=== PATIENT | female | born 1970 | race Native Hawaiian/Other Pacific Islander ===

== ENCOUNTER 2016-05-23 07:02 | Inpatient (IN) | payer OTHER ==
[2016-05-23 08:01] LABS: Basophils % (Auto) 0.6 % (0.0-1.8); Eosinophils % (Auto) 1.6 % (0.0-4.3); Hematocrit 41.9 % (30.3-42.9); Hemoglobin 13.8 gm/dl (10.1-14.3); Mean Corpuscular HGB Conc 33 % (30-34); Mean Corpuscular Hemoglobin 29 pg (28-32); Mean Corpuscular Volume 89 fl (79-97); Platelet Count 266 K/mm3 (140-440); Red Blood Count 4.71 M/mm3 (3.65-5.03); Red Cell Distribution Width 13.1 % (13.2-15.2); White Blood Count 6.2 K/mm3 (4.5-11.0)
[2016-05-23 08:10] LABS: Bilirubin,Urine NEG (Negative); Blood,Urine NEG (Negative); Ketones,Urine NEG (Negative); Leukocyte Esterase,Urine NEG (Negative); Mucus,Urine FEW /HPF; Nitrite,Urine NEG (Negative); Protein,Urine <15 mg/dL mg/dL (Negative); Urobilinogen,Urine < 2.0 mg/dL (<2.0); WBC,Urine < 1.0 /HPF (0.0-6.0)
[2016-05-23 08:25] LABS: Alanine Aminotransferase 42 units/L (7-56); Albumin 4.1 g/dL (3.9-5); Albumin/Globulin Ratio 1.1 %; Alkaline Phosphatase 114 units/L (35-129); Anion Gap 19 mmol/L; Bilirubin,Total 0.3 mg/dL (0.1-1.2); Blood Urea Nitrogen 12 mg/dL (7-17); Calcium 8.9 mg/dL (8.4-10.2); Carbon Dioxide 21 mmol/L (22-30); Chloride 101.2 mmol/L (98-107); Glucose 143 mg/dL (65-100); Lipase 45 units/L (13-60); Potassium 4.2 mmol/L (3.6-5.0); Sodium 137 mmol/L (137-145); Total Protein 7.8 g/dL (6.3-8.2)
--- NOTE | 2016-05-23 09:08 | Ultrasound Report ---
ULTRASOUND ABDOMEN LIMITED INDICATION: RUQ pain. COMPARISON: 04/15/2016 CT. FINDINGS: Right upper quadrant sonography demonstrates diffusely echogenic liver with grossly preserved contours. Right hepatic lobe approximately 20-21 cm in midclavicular length. No definite focal suspicious lesion or biliary dilatation. No gallstones or pericholecystic fluid. Hint of slight gallbladder sludge. Gallbladder wall thickness is 2.9 mm. Common bile duct is 4.5 mm. Imaged pancreas, nonaneurysmal abdominal aorta, IVC and the right kidney appear within normal limits. CONCLUSION: Fatty liver and slight gallbladder sludge without acute right upper quadrant sonographic abnormality, as described. Thank you for the opportunity to participate in this patient's care.
--- NOTE | 2016-05-23 09:17 | Emergency Department Report ---
HPI - General Chief Complaint: Chest Pain Time Seen by Provider: 05/23/16 08:40 - HPI HPI: Chief complaint: Right upper quadrant abdominal pain and left chest pain HPI: Patient is a 45-year-old female with a history of diabetes who states she's been having intermittent right upper quadrant pain radiating to the right flank with nausea off and on for the last month. Patient states that she usually worse when she lays flat sometimes is worse when she eats. Is also complains of left upper anterior chest pain radiating to her shoulder and down her left arm that she has intermittently. States it's worse when she's stressed and began this morning when she became stressed but continues. Patient had a negative stress thallium one year ago and has been worked up by nozzle tender with an echocardiogram in the last year. Patient also complains of tingling pain a stocking pattern for the last month or so. Mode of arrival: Private car Source: Patient old chart Began: See above Duration: See above Context: See above Quality: See above Severity: 8 out of 10 Improved with: Nothing Worsened with: See above Associated signs and symptoms: Patient denies shortness of breath or diaphoresis. ED Past Medical Hx - Past Medical History Previous Medical History?: Yes Hx Diabetes: Yes Additional medical history: fibromyalgia - Surgical History Past Surgical History?: Yes Additional Surgical History: x 2 - Social History Smoking Status: Never Smoker Substance Use Type: None - Medications Home Medications: Home Medications Medication Instructions Recorded Confirmed Last Taken Type Ibuprofen/Famotidine [Duexis 1 tab PO BID 03/26/13 05/23/16 05/24/15 History 800-26.6 mg Tablet] Dapagliflozin Propanediol [Farxiga] 5 mg PO QDAY 05/29/15 05/23/16 05/29/15 History Gabapentin [Gralise] 600 mg PO QDAY 05/29/15 05/23/16 05/24/15 History Sitagliptin Phos/Metformin HCl 1 tab PO QDAY 05/29/15 05/23/16 05/29/15 History [Janumet XR 100-1,000 mg] ED Review of Systems ROS: Stated complaint: ABD PAIN Other details as noted in HPI ROS Constitutional: No fever ENT: No uri symptoms Cardiovascular: chest pain Respiratory: No sob or cough GI: No vomiting or diarrhea : No dysuria frequency or urgency, Skin: No rash Neuro: No focal weakness or numbness Psych: No depression Gilberto/lymph: No edema Physical Exam - Physical Exam Vital Signs: Vital Signs 05/23/16 05/23/16 05/23/16 07:19 07:53 08:11 Temperature 97.9 F Pulse Rate 71 71 Respiratory 18 16 16 Rate Blood Pressure 124/60 Blood Pressure 124/60 [Left] O2 Sat by Pulse 97 99 99 Oximetry Physical Exam: GENERAL: The patient is well-developed well-nourished . HEENT: Normocephalic. Atraumatic. Extraocular motions are intact. Patient has moist mucous membranes. NECK: Supple. No meningitic signs are noted. There is no adenopathy noted. CHEST/LUNGS: Clear to auscultation. There is no respiratory distress noted. HEART/CARDIOVASCULAR: Regular. There is no tachycardia. There is no gallop rub or murmur. ABDOMEN: Abdomen is soft, mild right upper quadrant tenderness without rebound or guarding.. Patient has normal bowel sounds. There is no abdominal distention. SKIN: There is no rash. There is no edema. There is no diaphoresis. NEURO: The patient is awake, alert, and oriented. The patient is cooperative. The patient has no focal neurologic deficits. The patient has normal speech. MUSCULOSKELETAL: There is no tenderness or deformity. There is no limitation range of motion. There is no evidence of acute injury. ED Course Vital Signs 05/23/16 05/23/16 05/23/16 07:19 07:53 08:11 Temperature 97.9 F Pulse Rate 71 71 Respiratory 18 16 16 Rate Blood Pressure 124/60 Blood Pressure 124/60 [Left] O2 Sat by Pulse 97 99 99 Oximetry ED Medical Decision Making - Lab Data Result diagrams: 05/23/16 07:41 05/23/16 07:41 Laboratory Tests 05/23/16 05/23/16 07:41 07:41 Troponin T < 0.010 Lipase 45 HCG, Qual Negative Urinalysis within normal limits. - EKG Data -: EKG Interpreted by Me EKG shows normal: sinus rhythm Rate: normal (76) - EKG Data When compared to previous EKG there are: no significant change Interpretation: normal EKG - Radiology Data Radiology results: report reviewed (gallbladder ultrasound shows sludge and fatty liver but otherwise normal) interpreted by me: Chest x-ray shows no acute process. Critical care attestation.: If time is entered above; I have spent that time in minutes in the direct care of this critically ill patient, excluding procedure time. ED Disposition Clinical Impression: Chest pain Qualifiers: Chest pain type: unspecified Qualified Code(s): R07.9 - Chest pain, unspecified Disposition: OP ADMITTED IP TO THIS HOSP Is pt being admited?: Yes Does the pt Need Aspirin: Yes Condition: Fair Instructions: Chest Pain (ED) Referrals: PRIMARY CARE,MD [Primary Care Provider] - 3-5 Days Time of Disposition: 09:49 (admit to the hospitalist)
--- NOTE | 2016-05-23 10:20 | XRay Report ---
ROUTINE CHEST, TWO VIEWS: HISTORY: chest pain. The trachea, heart, mediastinal contour, lung ashley and bony thorax are unremarkable. IMPRESSION: Unremarkable chest x-ray.
--- NOTE | 2016-05-23 10:24 | Admit Criteria Form ---
Admission Criteria Documentation: CHEST PAIN Clinical Indications for Admission to Inpatient Care (Place 'X' for any and all applicable criteria): Admission is indicated for chest pain and ANY ONE of the following(1)(2)(3)(4)(5 ): [ ]I. Angina with acute coronary syndrome (Also use Myocardial Infarction or Angina guideline) [ ]II. Hemodynamic instability [X ]III. Angina needing acute intervention as indicated by ALL of the following (11)(12): [X ]a) Unstable angina is present as indicated by angina that is ANY ONE of the following: [ ]i) New onset [ ]ii) Nocturnal [X ]iii) Prolonged at rest [ ]iv) Progressive [X]b) Angina warrants acute intervention as indicated by ANY ONE of the following: [ ]i) Recurrent angina (e.g, not responding as previously to treatment) [ ]ii) Angina at rest or with low-level activities despite initial medical therapy [ ]iii) New or presumably new ST-segment depression on ECG [ ]iv) Signs or symptoms of heart failure (eg, dyspnea, pulmonary edema) [ ]v) New or worsening mitral regurgitation [ ]vi) Hemodynamic instability [ ]vii) Dangerous arrhythmia (eg, sustained ventricular tachycardia) [ ]viii) History of percutaneous coronary intervention within 6 months [ ]ix) History of coronary artery bypass graft surgery [ ]x) BILL risk score of 2 or greater[A] [X]xi) History of Diabetes(14) [ ]xii) High-risk cardiac ischemia findings on noninvasive testing (e.g, echocardiogram, treadmill testing, nuclear scan) [ ]xiii) Chronic renal insufficiency (ie, estimated GFR less than 60 mL/min/1.732m) [ ]xiv) Left ventricular ejection fraction less than 40% [ ]IV. Evidence of UT (eg, cardiac biomarkers positive, ST-segment elevation on ECG) also use Myocardial Infarction Criteria Form. [ ]V. Pulmonary edema [ ]. Respiratory distress [ ]VII. Chest pain indicative of serious diagnosis other than coronary artery disease (eg, aortic dissection) [ ]VIII. Contraindications and/or Inappropriate clinical situations for Observational Care in patients with Chest Pain, when ANY ONE of the following is required: [ ]a) Patient with risk factor for pulmonary embolism, acute coronary syndrome and myocardial infarction (18) [ ]b) Patient with Pulmonary embolism require an average LOS of 4.3 days, therefore emergency department observation management is inappropriate 18,23 [ ]c) Painful condition/s in the elderly, have the highest rate of recidivism after emergency department observation management (10.8%) 20,21,22 [ ]d) Elevated cardiac biomarker requires intensive and exhaustive care (19) [ ]IX. General contraindications and/or Inappropriate clinical situations for Observational Care in patients with Chest Pain, when ANY ONE of the following is required: [ ]a) Prediction of prolongation of LOS based on ANY ONE of the following may be considered as a contraindication for observational care 2, 3, 4, 5, 6, 7, 8, 9, 10, 11 [ ]i) Age > 65 yrs. [ ]ii) Patient arriving by ambulance [ ]iii) Patient with high acuity [ ]iv) Patient requiring vital sign monitoring [ ]v) Patient on IV medication [ ]b) Systolic blood pressures 180mmHg 3,12 [ ]c) Patient with altered mental status including delirium and other alteration of consciousness, (3) [ ]d) Patient whose discharge disposition will be to a shelter home or rehabilitation home should not be managed in Emergency Department Observation Unit. CMS rule requires 3 days hospital stay before such placement. 3,13 [ ]e) Patient with failure to thrive due to broad array of etiologies 3,16,17 [ ]f) Inability to ambulate 3,14 Extended stay beyond goal length of stay may be needed for (1)(28): [ ]a) Specific condition diagnosed after evaluation (eg, pulmonary embolism, aortic dissection) [ ]b) Unstable angina [ ]c) Continued suspicion of acute coronary syndrome with inability to complete needed cardiac evaluation (eg, patient clinically unable to undergo stress testing) [ ]d) Myocardial infarction (Contents from ANGINA and CHEST PAIN clinical indications for admission to inpatient care have been integrated in this form) The original [employer] content created by [employer] has been revised. The portions of the content which have been revised are identified through the use of italic text or in bold, and [email or web address] has neither reviewed nor approved the modified material. All other unmodified content is copyright [employer]. Please see references footnoted in the original [email or web address] edition 2016 Admission Criteria Met: Yes
[2016-05-23] MEDS ORDERED: ASPIRIN PO ONE (11:05)
[2016-05-23] MEDS ORDERED: LEXISCAN IV ONE ×2 (11:45→11:48)
--- NOTE | 2016-05-23 13:47 | Treadmill Report ---
THALLIUM STRESS TEST LEFT VENTRICLE: Left ventricular chamber size is within normal. Perfusion study demonstrates mild breast attenuation artifact, otherwise homogeneous uptake of the tracer in all segments. No significant defects identified. Gated analysis demonstrates normal left ventricular systolic function, ejection fraction 75%. CONCLUSION: Normal myocardial perfusion study. JOB# [id number] CA/NTS
[2016-05-23] MEDS ORDERED: ZOFRAN IV PRN (14:57)
[2016-05-23] MEDS: MORPHINE IV PRN ×2 (15:30→19:49)
[2016-05-23] MEDS ORDERED: TYLENOL PO PRN (17:13)
[2016-05-23] MEDS ORDERED: NON-FORMULARY (Gabapentin [Gralise] 600 MG) PO SCH (20:45)
[2016-05-23] MEDS ORDERED: DAPAGLIFLOZIN PROPANEDIOL 5 MG PO SCH (20:45)
[2016-05-23] MEDS ORDERED: NON-FORMULARY (Sitagliptin Phos/Metformin Hcl [Janumet Xr 100-1,000 Mg] 1 TAB) PO SCH (20:45)
--- NOTE | 2016-05-23 20:47 | History and Physical Report ---
History of Present Illness Date of examination: 05/23/16 Date of admission: 05/23/16 09:33 Chief complaint: CP and RUQ pain 1 day History of present illness: Patient is a 45-year-old female with a history of diabetes who states she's been having intermittent right upper quadrant pain radiating to the right flank with nausea off and on for the last month. Patient states that she usually worse when she lays flat sometimes is worse when she eats. Is also complains of left upper anterior chest pain radiating to her shoulder and down her left arm that she has intermittently. States it's worse when she's stressed and began this morning when she became stressed but continues. Patient had a negative stress thallium one year ago and has been worked up by blocker and polisher gold wheel with an echocardiogram in the last year. Patient also complains of tingling pain a stocking pattern for the last month or so. Mode of arrival: Private car Source: Patient old chart Began: See above Duration: See above Context: See above Quality: See above Severity: 8 out of 10 Improved with: Nothing Worsened with: See above Associated signs and symptoms: Patient denies shortness of breath or diapho Past History Past Medical History: diabetes, hyperlipidemia Past Surgical History: No surgical history Social history: lives with family Family history: hypertension Medications and Allergies Allergies Allergy/AdvReac Type Severity Reaction Status Date / Time codeine Allergy Nausea Unverified 04/14/16 13:52 ROACHES,CATS Allergy SLEEPY,WATERY Uncoded 04/14/16 13:53 EYES Home Medications Medication Instructions Recorded Confirmed Last Taken Type Ibuprofen/Famotidine [Duexis 1 tab PO BID 03/26/13 05/23/16 05/24/15 History 800-26.6 mg Tablet] Dapagliflozin Propanediol [Farxiga] 5 mg PO QDAY 05/29/15 05/23/16 05/29/15 History Gabapentin [Gralise] 600 mg PO QDAY 05/29/15 05/23/16 05/24/15 History Sitagliptin Phos/Metformin HCl 1 tab PO QDAY 05/29/15 05/23/16 05/29/15 History [Janumet XR 100-1,000 mg] Active Meds: Active Medications Acetaminophen (Tylenol) 650 mg PO Q4H PRN PRN Reason: Pain, Mild (1-3) Last Admin: 05/23/16 19:49 Dose: 650 mg Insulin Aspart (Novolog) 0 units SUB-Q ACHS REMIGIO PRN Reason: Protocol Miscellaneous Medication (Dapagliflozin Propanediol [Farxiga]) 5 mg PO QDAY REMIGIO Miscellaneous Medication (Gabapentin [Gralise]) 600 mg PO QDAY [facility] Miscellaneous Medication (Sitagliptin Phos/Metformin Hcl [Janumet Xr 100-1,000 Mg]) 1 tab PO QDAY REMIGIO Morphine Sulfate (Morphine) 2 mg IV Q4H PRN PRN Reason: Pain, Moderate (4-6) Last Admin: 05/23/16 19:49 Dose: 2 mg Ondansetron HCl (Zofran) 4 mg IV Q4H PRN PRN Reason: Nausea And Vomiting Review of Systems All systems: negative Cardiovascular: chest pain Gastrointestinal: abdominal pain Exam - Constitutional Vitals: Temp Pulse Resp BP Pulse Ox 98.0 F 84 18 110/55 99 05/23/16 17:35 05/23/16 17:35 05/23/16 17:35 05/23/16 17:35 05/23/16 09:54 General appearance: Present: no acute distress, well-nourished - EENT Eyes: Present: PERRL ENT: hearing intact, clear oral mucosa - Neck Neck: Present: supple, normal ROM - Respiratory Respiratory effort: normal Respiratory: bilateral: CTA - Cardiovascular Heart Sounds: Present: S1 & S2. Absent: rub, click - Extremities Extremities: pulses symmetrical, No edema Peripheral Pulses: within normal limits - Abdominal General gastrointestinal: Present: soft, non-tender, non-distended, normal bowel sounds Female genitourinary: Present: normal - Integumentary Integumentary: Present: clear, warm, dry - Musculoskeletal Musculoskeletal: gait normal, strength equal bilaterally - Psychiatric Psychiatric: appropriate mood/affect, intact judgment & insight - Neurologic Neurologic: CNII-XII intact, moves all extremities Results - Labs CBC & Chem 7: 05/23/16 07:41 05/23/16 07:41 Labs: Abnormal lab results 05/23/16 Range/Units 17:36 POC Glucose 167 H (70-105) Assessment and Plan - Patient Problems (1) Chest pain Status: Acute Qualifiers: Chest pain type: C Plan to address problem: Chest pain w/u-stress test and serial CE's (2) T2DM (type 2 diabetes mellitus) Status: Chronic Qualifiers: Diabetes mellitus complication status: without complication Diabetes mellitus complication detail: D Diabetic retinopathy severity: D Proliferative retinopathy type: P Diabetes mellitus macular edema: D Diabetes mellitus long term care phlebotomist insulin use: D Laterality: L Chronic kidney disease stage: C (3) Abdominal pain Status: Acute Qualifiers: Abdominal location: right upper quadrant Qualified Code(s): R10.11 - Right upper quadrant pain Plan to address problem: Surgical eval (4) DVT prophylaxis Status: Acute Plan to address problem: Lovenox 40 mg sq qd
[2016-05-23] MEDS ORDERED: NOVOLOG SUB-Q SCH (22:00)
[2016-05-24 00:24] VITALS: BP 130/62
--- NOTE | 2016-05-24 08:25 | Discharge Summary ---
Providers - Providers Date of Admission: 05/23/16 09:33 Date of discharge: 05/24/16 Attending physician: SARAY ELLISON Primary care physician: ANSON FABIAN MD Hospitalization Condition: Fair Hospital course: Patient was admitted for CP/Abd pain.Stress test was negative.Patient left AMA Disposition: LEFT AGAINST MEDICAL ADVICE Time spent for discharge: 15 minutes - Discharge Diagnoses (1) Chest pain Status: Resolved Qualifiers: Chest pain type: C Comment: secondary to GERD (2) T2DM (type 2 diabetes mellitus) Status: Chronic Qualifiers: Diabetes mellitus complication status: without complication Diabetes mellitus complication detail: D Diabetic retinopathy severity: D Proliferative retinopathy type: P Diabetes mellitus macular edema: D Diabetes mellitus senior care insulin use: D Laterality: L Chronic kidney disease stage: C (3) Abdominal pain Status: Acute Qualifiers: Abdominal location: right upper quadrant Qualified Code(s): R10.11 - Right upper quadrant pain Comment: Needs f/u with surgeon (4) DVT prophylaxis Status: Acute Core Measure Documentation - Palliative Care Palliative Care/ Comfort Measures: Not Applicable - Core Measures Any of the following diagnoses?: none Exam - Constitutional Vitals: Temp Pulse Resp BP Pulse Ox 98.2 F 84 18 130/62 97 05/24/16 00:24 05/24/16 00:24 05/24/16 00:24 05/24/16 00:24 05/24/16 00:24 Plan Follow up with: ANSON FABIAN MD [Primary Care Provider] - 3-5 Days Forms: AMA Form
[2016-05-24] MEDS ORDERED: TRADJENTA PO SCH (10:00)
[2016-05-24] MEDS ORDERED: GLUCOPHAGE XR PO SCH (10:00)
== END 2016-05-24 02:00 | disposition left against medical advice (07) | DRG 392 ==
LOC: ED 07:02 → 4A 09:33
PROVIDERS: ADMIT Internal Medicine; ATTEND Internal Medicine
DX: K21.9 Gastro-esophageal reflux disease without esophagitis (principal); E11.9 Type 2 diabetes mellitus without complications; M79.7 Fibromyalgia; E78.5 Hyperlipidemia, unspecified; R10.11 Right upper quadrant pain; Z88.5 Allergy status to narcotic agent; Z91.048 Other nonmedicinal substance allergy status; Z82.49 Family history of ischemic heart disease and other diseases of the circulatory system; Z53.21 Procedure and treatment not carried out due to patient leaving prior to being seen by health care provider
CPT/HCPCS: 36415; 71020; 76705; 78452; 80053; 81001; 82962; 83690; 84484; 84703; 85025; 93005; 93010; 93017; 96374; A9502; J2270; J2785

== ENCOUNTER 2016-12-20 00:47 | Emergency (ER) | payer OTHER | END 2016-12-20 01:15 | disposition left against medical advice (07) | LOC: ED 00:47 | DX: R07.9 Chest pain, unspecified (principal); Z53.21 Procedure and treatment not carried out due to patient leaving prior to being seen by health care provider | CPT/HCPCS: 93005; 93010 ==

== ENCOUNTER 2017-05-25 03:09 | Emergency (ER) | payer OTHER | END 2017-05-25 03:25 | disposition left against medical advice (07) | LOC: ED 03:09 | DX: R11.2 Nausea with vomiting, unspecified (principal); Z53.21 Procedure and treatment not carried out due to patient leaving prior to being seen by health care provider ==

== ENCOUNTER 2019-02-14 03:42 | Emergency (ER) | payer OTHER ==
[2019-02-14 03:55] VITALS: BP 156/73
--- NOTE | 2019-02-14 04:52 | Emergency Department Report ---
ED General Adult HPI - General Chief complaint: Wound/Laceration Stated complaint: PUNCTURE TO RIGHT HAND Time Seen by Provider: 02/14/19 04:15 Source: patient Mode of arrival: Ambulatory Limitations: No Limitations - History of Present Illness Initial comments: This is a 48-year-old female with no prior medical conditions who presents to ED after sustaining a puncture wound while cleaning out work but signed Natalia 2 AM. Patient states she had some Nitrol gloves on when she notices to the see some bleeding on her right palm. Patient states that she is unsure what the object that struck her was. Patient states after she looked into the trash she was cleaning she noted superiors of hearing, but said peak, some sharp object unknown metal. Patient states she does not recall a tetanus vaccination being up to date. At this moment moment she denies any symptoms. He is requested for STD panel - Related Data Home Medications Medication Instructions Recorded Confirmed Last Taken Ibuprofen/Famotidine [Duexis 1 tab PO BID 03/26/13 05/23/16 05/24/15 800-26.6 mg Tablet] Dapagliflozin Propanediol [Farxiga] 5 mg PO QDAY 05/29/15 05/23/16 05/29/15 Gabapentin [Gralise] 600 mg PO QDAY 05/29/15 05/23/16 05/24/15 Sitagliptin Phos/Metformin HCl 1 tab PO QDAY 05/29/15 05/23/16 05/29/15 [Janumet XR 100-1,000 mg] Previous Rx's Medication Instructions Recorded Last Taken Type Amoxicillin/K Clav Tab [Augmentin 1 tab PO Q12HR #20 tab 02/14/19 Unknown Rx 875 mg] Clindamycin [Clindamycin CAP] 300 mg PO Q6H #21 capsule 02/14/19 Unknown Rx Allergies Allergy/AdvReac Type Severity Reaction Status Date / Time codeine Allergy Nausea Unverified 04/14/16 13:52 ROACHES,CATS Allergy SLEEPY,WATERY Uncoded 04/14/16 13:53 EYES ED Review of Systems ROS: Stated complaint: PUNCTURE TO RIGHT HAND Other details as noted in HPI Comment: All other systems reviewed and negative ED Past Medical Hx - Past Medical History Previous Medical History?: Yes Hx Diabetes: Yes Additional medical history: fibromyalgia - Surgical History Past Surgical History?: Yes Additional Surgical History: x 2 - Social History Smoking Status: Never Smoker Substance Use Type: None - Medications Home Medications: Home Medications Medication Instructions Recorded Confirmed Last Taken Type Ibuprofen/Famotidine [Duexis 1 tab PO BID 03/26/13 05/23/16 05/24/15 History 800-26.6 mg Tablet] Dapagliflozin Propanediol [Farxiga] 5 mg PO QDAY 05/29/15 05/23/16 05/29/15 H istory Gabapentin [Gralise] 600 mg PO QDAY 05/29/15 05/23/16 05/24/15 History Sitagliptin Phos/Metformin HCl 1 tab PO QDAY 05/29/15 05/23/16 05/29/15 History [Janumet XR 100-1,000 mg] Amoxicillin/K Clav Tab [Augmentin 1 tab PO Q12HR #20 tab 02/14/19 Unknown Rx 875 mg] Clindamycin [Clindamycin CAP] 300 mg PO Q6H #21 capsule 02/14/19 Unknown Rx ED Physical Exam - General Limitations: No Limitations General appearance: alert, in no apparent distress - Head Head exam: Present: atraumatic, normocephalic - Eye Eye exam: Present: normal appearance - ENT ENT exam: Present: mucous membranes moist - Neck Neck exam: Present: normal inspection - Respiratory Respiratory exam: Present: normal lung sounds bilaterally. Absent: respiratory distress - Cardiovascular Cardiovascular Exam: Present: regular rate, normal rhythm. Absent: systolic murmur, diastolic murmur, rubs, gallop - GI/Abdominal GI/Abdominal exam: Present: soft, normal bowel sounds - Extremities Exam Extremities exam: Present: normal inspection - Back Exam Back exam: Present: normal inspection - Neurological Exam Neurological exam: Present: alert, oriented X3 - Psychiatric Psychiatric exam: Present: normal affect, normal mood - Skin Skin exam: Present: warm, dry, intact, normal color. Absent: rash ED Course Vital Signs 02/14/19 03:48 Temperature 98.2 F Pulse Rate 86 Respiratory 14 Rate Blood Pressure 156/73 O2 Sat by Pulse 95 Oximetry ED Medical Decision Making - Lab Data Result diagrams: 02/14/19 04:45 02/14/19 04:45 Laboratory Last Values WBC 6.4 K/mm3 (4.5-11.0) 02/14/19 04:45 RBC 4.44 M/mm3 (3.65-5.03) 02/14/19 04:45 Hgb 14.0 gm/dl (10.1-14.3) 02/14/19 04:45 Hct 41.0 % (30.3-42.9) 02/14/19 04:45 MCV 93 fl (79-97) 02/14/19 04:45 MCH 32 pg (28-32) 02/14/19 04:45 MCHC 34 % (30-34) 02/14/19 04:45 RDW 13.4 % (13.2-15.2) 02/14/19 04:45 Plt Count 289 K/mm3 (140-440) 02/14/19 04:45 Lymph % (Auto) 37.4 % (13.4-35.0) H 02/14/19 04:45 [place] % (Auto) 5.9 % (0.0-7.3) 02/14/19 04:45 Eos % (Auto) 2.0 % (0.0-4.3) 02/14/19 04:45 Baso % (Auto) 0.6 % (0.0-1.8) 02/14/19 04:45 Lymph # 2.4 K/mm3 (1.2-5.4) 02/14/19 04:45 [place] # 0.4 K/mm3 (0.0-0.8) 02/14/19 04:45 Eos # 0.1 K/mm3 (0.0-0.4) 02/14/19 04:45 Baso # 0.0 K/mm3 (0.0-0.1) 02/14/19 04:45 Seg Neutrophils % 54.1 % (40.0-70.0) 02/14/19 04:45 Seg Neutrophils # 3.4 K/mm3 (1.8-7.7) 02/14/19 04:45 Sodium 142 mmol/L (137-145) 02/14/19 04:45 Potassium 3.6 mmol/L (3.6-5.0) 02/14/19 04:45 Chloride 106.5 mmol/L (98-107) 02/14/19 04:45 Carbon Dioxide 20 mmol/L (22-30) L 02/14/19 04:45 Anion Gap 19 mmol/L 02/14/19 04:45 BUN 14 mg/dL (7-17) 02/14/19 04:45 Creatinine 0.5 mg/dL (0.7-1.2) L 02/14/19 04:45 Estimated GFR > 60 ml/min 02/14/19 04:45 BUN/Creatinine Ratio 28 % 02/14/19 04:45 Glucose 157 mg/dL (65-100) H 02/14/19 04:45 Calcium 9.2 mg/dL (8.4-10.2) 02/14/19 04:45 Total Bilirubin 0.30 mg/dL (0.1-1.2) 02/14/19 04:45 AST 73 units/L (5-40) H 02/14/19 04:45 ALT 106 units/L (7-56) H 02/14/19 04:45 Alkaline Phosphatase 137 units/L (35-129) H 02/14/19 04:45 Total Protein 8.4 g/dL (6.3-8.2) H 02/14/19 04:45 Albumin 4.5 g/dL (3.9-5) 02/14/19 04:45 Albumin/Globulin Ratio 1.2 % 02/14/19 04:45 Hep Bs Antigen Non-reactive (Negative) 02/14/19 04:45 Hepatitis C Antibody Non-reactive (NonReactive) 02/14/19 04:45 - Medical Decision Making 48-year-old female presents with puncture wound to the right palm at work Postexposure labs completed. Discussed the patient need to take the repeat labs in 3 months and then 6 months. Patient received tetanus booster in the ED today. Patient is to go home on antibiotic therapy for coverage Discussed the patient to follow-up with primary care physician within the week. Critical care attestation.: If time is entered above; I have spent that time in minutes in the direct care of this critically ill patient, excluding procedure time. ED Disposition Clinical Impression: Puncture wound Disposition: [id number] TO HOME OR SELFCARE Is pt being admited?: No Does the pt Need Aspirin: No Condition: Stable Instructions: Puncture Wound (ED) Additional Instructions: Make sure to follow up with the primary care physician as discussed. Take all your medications as you've been prescribed. Please follow up with a clinic in 3 months for repeat hepatitis and HIV testing. Please follow up in 6 months for another repeat hepatitis and HIV testing If you have any worsening symptoms or develop new symptoms please return to ED immediately. Prescriptions: Amoxicillin/K Clav Tab [Augmentin 875 mg] 1 tab PO Q12HR #20 tab Clindamycin [Clindamycin CAP] 300 mg PO Q6H #21 capsule Referrals: PRIMARY CARE, [Primary Care Provider] - 3-5 Days [facility] [Outside] - 3-5 Days [facility] [Outside] - 3-5 Days Forms: Work/School Release Form(ED) Time of Disposition: 05:40
[2019-02-14] MEDS ORDERED: TETANUS,DIPH,PERTUSS(ACELL) VACCINE 0.5 ML SYRINGE IM ONE (04:53)
[2019-02-14] MEDS ORDERED: IBUPROFEN 800 MG TAB PO ONE (04:53)
[2019-02-14 05:13] LABS: Basophils % (Auto) 0.6 % (0.0-1.8); Eosinophils # (Auto) 0.1 K/mm3 (0.0-0.4); Lymphocytes # (Auto) 2.4 K/mm3 (1.2-5.4); Lymphocytes % (Auto) 37.4 % (13.4-35.0); Mean Corpuscular HGB Conc 34 % (30-34); Mean Corpuscular Volume 93 fl (79-97); Monocytes # (Auto) 0.4 K/mm3 (0.0-0.8); Monocytes % (Auto) 5.9 % (0.0-7.3); Platelet Count 289 K/mm3 (140-440); Red Blood Count 4.44 M/mm3 (3.65-5.03); Red Cell Distribution Width 13.4 % (13.2-15.2)
[2019-02-14 05:35] LABS: Alanine Aminotransferase 106 units/L (7-56); Albumin 4.5 g/dL (3.9-5); BUN/Creatinine Ratio 28; Blood Urea Nitrogen 14 mg/dL (7-17); Calcium 9.2 mg/dL (8.4-10.2); Hemolysis Index 4
[2019-02-18 08:30] LABS: HIV-1 Antibody Differentiation NON-REACTIVE; HIV-2 Antibody Differentiation NON-REACTIVE
== END 2019-02-14 05:51 | disposition home or self-care (01) ==
LOC: ED 03:42
DX: S61.431A Puncture wound without foreign body of right hand, initial encounter (principal); E11.9 Type 2 diabetes mellitus without complications; X58.XXXA Exposure to other specified factors, initial encounter; Y93.89 Activity, other specified; Y92.89 Other specified places as the place of occurrence of the external cause; Y99.8 Other external cause status
CPT/HCPCS: 36415; 80053; 85025; 86689; 86706; 86803; 90471; 90715; 99282